=== PATIENT | female | born 1990 | race Caucasian/White ===

== ENCOUNTER → 2017-02-21 | Outpatient (CLI) | payer BC, SELFPAY ==
[~2017-02-21] MED LIST: Ferrous Sulfat325 M2 PO; IBUP800 PO; LEVSOD137 PO; Percocet 5-3251 EACH PO
[2017-02-22 04:37] LABS: Source VAGINAL
== END | disposition home or self-care (01) ==
LOC: LAB 11:39
PROVIDERS: Obstetrics & Gynecology
DX: R87.612 Low grade squamous intraepithelial lesion on cytologic smear of cervix (LGSIL) (principal)
CPT/HCPCS: 88142

== ENCOUNTER → 2018-06-09 | Outpatient (CLI) | payer BC | END | disposition home or self-care (01) | LOC: LAB 16:36 → LAB SHORT 16:36 | PROVIDERS: Obstetrics & Gynecology | DX: Z01.419 Encounter for gynecological examination (general) (routine) without abnormal findings (principal) | CPT/HCPCS: G0123 ==